=== PATIENT | male | born 1970 | race Hispanic/Latino ===

== ENCOUNTER 2016-12-10 06:15 | Emergency (ER) | payer OTHER ==
[~2016-12-10 06:15] MED LIST: FLEXERIL 5MG TAB5 MG PO
--- NOTE | 2016-12-10 06:32 | ED SYNCOPE COMPLAINT ---
History of Present Illness General Chief Complaint: General Adult Stated Complaint: SYNCOPAL EPISODE?SOB Source: patient, family Exam Limitations: no limitations Vital Signs & Intake/Output Vital Signs & Intake/Output Vital Signs Date Time Temp Pulse Resp B/P Pulse O2 O2 Flow FiO2 Ox Delivery Rate 12/10 1142 97 18 126/76 96 Room Air 12/10 0805 98.6 96 16 114/79 96 Room Air 12/10 0617 96.4 96 20 118/67 97 Room Air Allergies Coded Allergies: NO KNOWN ALLERGIES (03/17/15) Triage Note: PER PT NOT EATING WELL LAST COUPLE OF DAYS, LAST NIGHT COUGHING ALL NIGHT, THIS AM DEVELOPED L BACK PAIN, BEGAN TO VOMIT AND THEN WOKE UP ON FLOOR, WITH DAUGHTER OVER HIM, ALSO HAD WITNESSED SYNCOPAL EVENT IN EMS PRESENT, PT REPORTS GOING THROUGH A LOT RIGHT NOW. LEFT. Triage Nurses Notes Reviewed? yes Timing: recent history Precipitating Factors: none Context: became dizzy/fainted Episode Description: see below Loss of Consciousness: brief (seconds) Associated Symptoms: coughing HPI: 46 yo gentleman presents with syncope. He notes that he awoke this AM, was coughing, then felt dizzy, vomited and passed out briefly (few seconds). He then came back to consciousness and has otherwise felt well. He notes that he recently from his , has been under increased stress recently. He denies alcohol or other drugs. Upon arrival, he was tearful. He is otherwise well. (JACK GREGORY,KAY Banuelos) Reconcile Medications Clonazepam (Klonopin) 0.5 MG TABLET 1 TAB PO Q12 PRN ANXIETY (ISIDRO WALLACE DO) Past History Travel History Traveled to [place] past 21 day No Medical History Any Pertinent Medical History? see below for history Neurological: NONE EENT: NONE Cardiovascular: NONE Respiratory: NONE Gastrointestinal: NONE Hepatic: NONE Renal: NONE Musculoskeletal: NONE Psychiatric: NONE Endocrine: NONE Blood Disorders: NONE Cancer(s): NONE [employer]/Reproductive: NONE Surgical History Surgical History: none Psychosocial History What is your primary language Puerto Rican Tobacco Use: Current Daily Use Family History Family History, If Any: MOTHER FH: HTN (hypertension) FH: hyperlipidemia Hx Contributory? No (JACK GREGORY,KAY Banuelos) Review of Systems Review of Systems Constitutional: Reports: no symptoms. EENTM: Reports: no symptoms. Respiratory: Reports: no symptoms. Cardiovascular: Reports: no symptoms. GI: Reports: no symptoms. Genitourinary: Reports: no symptoms. Musculoskeletal: Reports: no symptoms. Skin: Reports: no symptoms. Neurological/Psychological: Reports: no symptoms. All Other Systems: Reviewed and Negative (JACK GREGORY,KAY Banuelos) Physical Exam Physical Exam General Appearance: well developed/nourished, alert, awake, anxious, mild distress Head: atraumatic, normal appearance Eyes: Bilateral: normal appearance, PERRL, EOMI. Ears, Nose, Throat: normal pharynx, normal ENT inspection Neck: normal inspection, supple, full range of motion Respiratory: normal breath sounds, no respiratory distress, left sided chest wall tenderness Cardiovascular: regular rate/rhythm Gastrointestinal: normal bowel sounds Back: normal inspection Extremities: normal inspection Psychiatric: awake, alert, oriented x 3 Cranial Nerves: normal hearing, normal speech, PERRL Motor/Sensory: no motor/sensory deficits Skin: intact, normal color, warm/dry Core Measures ACS in differential dx? No CVA/TIA Diagnosis: No Severe Sepsis Present: No Septic Shock Present: No (JACK GREGORY,KAY Banuelos) Progress Differential Diagnosis: orthostatic syncope, vasodepressor syncope, vs other Plan of Care: Orders Procedure Date/time Status BLOOD CULTURE 12/10 1202 Active TROPONIN LEVEL 12/10 1100 Complete CBC WITHOUT DIFFERENTIAL 12/10 1100 Complete EKG 12/10 1100 Active URINE DRUG SCREEN FOR ER ONLY 12/10 0715 Complete EKG 12/10 0637 Active URINALYSIS 12/10 0633 Complete TROPONIN LEVEL 12/10 0633 Complete PARTIAL THROMBOPLASTIN TIME 12/10 0633 Complete PROTHROMBIN TIME 12/10 0633 Complete ETHANOL 12/10 0633 Complete D-DIMER 12/10 0633 Complete COMPREHENSIVE METABOLIC PANEL 12/10 0633 Complete CBC WITHOUT DIFFERENTIAL 12/10 0633 Complete Laboratory Tests 12/10/16 1118: Troponin I < 0.01, CBC w Diff MAN DIFF ORDERED, RBC 4.91, MCV 91.4, MCH 31.5 H, RDW 12.3, MPV 8.2, Gran % 87.6 H, Lymphocytes % 10.4 L, Monocytes % 1.9, Eosinophils % 0, Basophils % 0.1, Absolute Granulocytes 18.6 H, Segmented Neutrophils 84 H, Absolute Lymphocytes 2.2, Lymphocytes 13 L, Monocytes 1 L, Absolute Monocytes 0.4, Eosinophils 1, Absolute Eosinophils 0, Basophils 1, Absolute Basophils 0, Platelet Estimate ADEQUATE, Normocytic RBCs VERIFIED, Normochromic RBCs VERIFIED, PUBS MCHC 34.4 12/10/16 0933: Urine Opiates Screen < 100.00, Methadone Screen < 40, Barbiturate Screen < 60, Ur Phencyclidine Scrn < 6.00, Amphetamines Screen < 100, U Benzodiazepines Scrn < 85, Urine Cocaine Screen < 50, Urine Cannabis Screen < 5.00, Urine Color YEL, Urine Clarity CLEAR, Urine pH 7.5, Ur Specific [place] <= 1.005, Urine Protein NEG, Urine Ketones NEG, Urine Nitrite NEG, Urine Bilirubin NEG, Urine Urobilinogen 0.2, Ur Leukocyte Esterase NEG, Ur Microscopic SEDIMENT EXAMINED, Urine RBC 1-3, Urine WBC RARE, Ur Epithelial Cells FEW, Urine Mucus FEW, Urine Hemoglobin TRACE-INTACT H, Urine Glucose NEG 12/10/16 0639: Anion Gap 13, Estimated GFR > 60, BUN/Creatinine Ratio 16.3, Glucose 161 H, Calcium 9.8, Total Bilirubin 0.9, AST 20, ALT 42, Alkaline Phosphatase 87, Troponin I < 0.01, Total Protein 7.2, Albumin 4.1, Globulin 3.1, Albumin/ Globulin Ratio 1.3, PT 11.8, INR 1.13, APTT 27, D-Dimer 282 H, CBC w Diff MAN DIFF ORDERED, RBC 4.88, MCV 91.7, MCH 31.4 H, RDW 12.7, MPV 8.7, Gran % 88.1 H , Lymphocytes % 7.7 L, Monocytes % 3.8, Eosinophils % 0.3, Basophils % 0.1, Absolute Granulocytes 21.9 H, Absolute Lymphocytes 1.9, Absolute Monocytes 0.9 H, Absolute Eosinophils 0.1, Absolute Basophils 0, Platelet Estimate ADEQUATE, Normocytic RBCs VERIFIED, Normochromic RBCs VERIFIED, PUBS MCHC 34.3, Serum Alcohol < 10.0 Microbiology 12/10 1215 BLOOD: Blood Culture - RECD 12/10 1209 BLOOD: Blood Culture - RECD Diagnostic Imaging: Viewed by Me: Radiology Read, CT Scan. Discussed w/RAD: Radiology Read, CT Scan. Initial ED EKG: normal axis, normal intervals, normal p-waves, normal QRS complex, normal sinus rhythm Hand-Off Endorsed To: ISIDRO WALLACE DO Endorsed Time: 0700 Pending: CT, labs, Xray (JACK GREGORY,KAY Banuelos) Departure Departure Disposition: STILL A PATIENT Condition: Stable Clinical Impression Primary Impression: Syncope Referrals: LUCIANO GREGORY,LOVELY Yuan (PCP/Family) Departure Forms: Customer Survey General Discharge Information (KAY SANTIAGO MD) Departure Prescriptions: Current Visit Scripts Clonazepam (Klonopin) 1 TAB PO Q12 PRN ANXIETY #15 TAB Comments 12/10/16 9 am 38-year-old male presents to the emergency department for syncope. According to the patient and he is getting from his . He's been under tremendous stress. Over the past 24 hours only been smoking cigarettes and drinking coffee. This morning he had 2 episodes of syncope, lasted seconds, he has been having some dizziness, no chest pain or shortness of breath. No headache now but he did have a headache. I was contacted by the radiologist resulting the CT scan of his head possible normal anatomic variation vs underlying parenchymal lesion. The patient had negative serial troponins and EKGs. He did have an elevated d-dimer. CTA was negative. No shortness of breath. He also has significant leukocytosis. He denies fever. No murmur. This was repeated and the white blood cell count came down somewhat. Blood cultures were sent. Upon reevaluation in the ED he has no symptoms. The results of the CT the head were reviewed as well as his lab results. He will follow-up with his primary care doctor this week and review the results of the CAT scans and lab work. He will return to the emergency department if worse. IMPRESSION: 1. No evidence of acute territorial cerebral or cerebellar infarction. 2. No intracranial hemorrhage. 3. There is asymmetry of the temporal horns of the lateral ventricles, the right being larger than the left. It is unclear whether the right temporal horn is slightly enlarged, or the left temporal horn is diminutive in size. Further evaluation with MRI with special attention to the temporal lobes is recommended to exclude an underlying parenchymal lesion. The above information was discussed with Dr. Wallace from the emergency room at 8:00 AM on 12/10/2016. DICTATED BY: KASHIF DUVALL MD DATE/TIME DICTATED:12/10/16743 BUS STARTER:STORMY DATE/TIME TRANSCRIBED:12/10/16743 CONFIDENTIAL, DO NOT COPY WITHOUT APPROPRIATE AUTHORIZATION. <Electronically signed in Other Vendor System> SIGNED BY: KASHIF DUVALL MD 12/10/16807 PATIENT: NICOLAS GAVIRIA PRESENT AGE: 46 PATIENT ACCOUNT NO: [id number] : 68 LOCATION: [facility] ORDERING PHYSICIAN: ISIDRO WALLACE DO SERVICE DATE: 12/10/16 EXAM TYPE: CAT - CTA CHEST-PULMONARY EMBOLISM EXAMINATION: CT ANGIOGRAM OF THE CHEST WITH AND WITHOUT CONTRAST (CT PULMONARY ANGIOGRAM FOR PE) CLINICAL INFORMATION: Chest pain, syncope. COMPARISON: Chest CTA 03/22/2015 TECHNIQUE: Prior to contrast administration, noncontrast localization images were obtained. Subsequently, multidetector volumetric imaging was performed from the thoracic inlet to below the diaphragms following the administration of 95 mL Optiray 320 intravenous contrast. No contrast reaction reported Sagittal, coronal, and MIP oblique sagittal reformatted images were obtained on the CT workstation, uploaded to PACS, and reviewed. DLP: 511 mGy-cm FINDINGS: QUALITY OF STUDY/CONTRAST BOLUS: Satisfactory. PULMONARY ARTERIES: No central or segmental pulmonary emboli. THORACIC AORTA: No aneurysm or dissection. LUNG: Moderate upper lobe predominant centrilobular emphysema. There is an 8 mm nodule at the left costophrenic sulcus. This is stable since 2014 although slightly increased in size when compared with 01/07/2009. There is a 4 mm nodule in the right upper lobe on image 120/461. This is stable since March 2015 and not imaged previously. Calcified granuloma in the lingula peripherally. PLEURA: No pleural effusion or pneumothorax. MEDIASTINUM: No pericardial effusion. There are enlarged subcarinal, precarinal, AP window, and hilar lymph nodes. CHEST WALL/AXILLA: No axillary or internal mammary lymphadenopathy. OSSEOUS STRUCTURES: No acute or suspicious osseous abnormality. UPPER ABDOMEN: Unremarkable. No reflux of contrast into the hepatic veins to suggest elevated right heart pressures. IMPRESSION: No evidence of pulmonary embolism. Mild mediastinal and hilar adenopathy. This has slightly increased since 03/22/2015. Moderate centrilobular emphysema. There is an 8 mm nodule at the left costophrenic sulcus and a 4 mm nodule in the right upper lobe. These are stable since 03/22/2015. Recommend follow-up chest CT in 6-12 months for this high-risk patient. Various management parameters for solitary pulmonary nodules are in the literature. According to the Fleischner Society, recommendations for pulmonary nodules are as follows: Nodule size < or = to 4 mm in LOW RISK PATIENTS: No follow up needed. Nodule size < or = to 4 mm in HIGH RISK PATIENTS: Follow up CT at 12 months; if unchanged, no further follow up. Nodule size > 4-6 mm in LOW RISK PATIENTS: Follow up CT at 12 months; if unchanged, no further follow up. Nodule size > 4-6 mm in HIGH RISK PATIENTS: Initial follow up CT at 6-12 months, then at 18-24 months if no change. Nodule size > 6-8 mm in LOW RISK PATIENTS: Initial follow up CT at 6-12 months, then at 18-24 months if no change. Nodule size > 6-8 mm in HIGH RISK PATIENTS: Initial follow up CT at 3-6 months, then 9-12 months and 24 months if no change. Nodule size > 8 mm in LOW RISK PATIENTS: Follow up CT at around 3, 9, and 24 months, dynamic contrast-enhanced CT, PET, and/or biopsy. Nodule size > 8 mm in HIGH RISK PATIENTS: Same as for low-risk patients. VTE: Negative. DICTATED BY: EDWARD CRISOSTOMO MD DATE/TIME DICTATED:12/10/16946 BUS STARTER:STORMY DATE/TIME TRANSCRIBED:12/10/16946 CONFIDENTIAL, DO NOT COPY WITHOUT APPROPRIATE AUTHORIZATION. <Electronically signed in Other Vendor System> SIGNED BY: EDWARD CRISOSTOMO MD [id number] (ISIDRO WALLACE DO) Critical Care Note Critical Care Note Comments: 12/10/16 The patient remains asymptomatic in the emergency Department is under severe stress. 2 sets of troponins are negative. He did have significant leukocytosis. Blood was have been ordered. He is afebrile CAT scan of the chest shows stable pulmonary nodules. He did have some abnormality on his CT scan of the head. He will follow-up with her doctor for outpatient MRI testing. Low dose of Klonopin his skin given to help him deal with the stress to follow- up with her doctor on Saturday. Return to the emergency department if worse (ISIDRO WALLACE DO)
[2016-12-10 06:52] LABS: ABSOLUTE BASOPHIL COUNT 0 /CUMM (0.0-0.2); ABSOLUTE EOSINOPHIL COUNT 0.1 /CUMM (0.0-0.7); ABSOLUTE GRANULOCYTE CT 21.9 /CUMM (1.4-6.5); ABSOLUTE LYMPH COUNT 1.9 /CUMM (1.2-3.4); ABSOLUTE MONOCYTE COUNT 0.9 /CUMM (0.10-0.60); BASOPHIL % 0.1 % (0.0-2.0); EOSINOPHIL % 0.3 % (0-5); GRANULOCYTE % 88.1 % (42.2-75.2); HEMATOCRIT 44.7 % (42-52); MEAN CORPUSCULAR HGB 31.4 PG (27.0-31.0); MEAN CORPUSCULAR HGB CONC 34.3 G/DL (33.0-37.0); MEAN CORPUSCULAR VOLUME 91.7 FL (80.0-94.0); MEAN PLATELET VOLUME 8.7 FL (7.4-10.4); PLATELET COUNT 300 /CUMM (130-400); RBC DISTRIBUTION WIDTH 12.7 % (11.5-14.5); RED BLOOD CELL CT 4.88 /CUMM (4.70-6.10); WHITE BLOOD CELL COUNT 24.8 /CUMM (4.8-10.8)
[2016-12-10 07:04] LABS: PT 11.8 SEC (9.4-12.5); PTT 27 SEC (25-37)
--- NOTE | 2016-12-10 07:45 | RADIOLOGY REPORT ---
EXAMINATION: XR PORTABLE CHEST CLINICAL INFORMATION: Syncope. Change in mental status. COMPARISON: Chest radiograph dated 03/15/2015. TECHNIQUE: Portable AP view of the chest was obtained. FINDINGS: The trachea is in normal anatomic position. The cardiac silhouette is normal in size and configuration. There is minimal bibasilar linear atelectasis, greater on the right. No consolidation. No pneumothorax. No pleural effusion. IMPRESSION: No pneumonia, pneumothorax or pleural effusion.
--- NOTE | 2016-12-10 08:08 | CT SCAN REPORT ---
EXAMINATION: CT HEAD WITHOUT CONTRAST CLINICAL INFORMATION: Syncope. Mental status change. COMPARISON: None. TECHNIQUE: Contiguous axial imaging was performed from the skull base to vertex without intravenous administration of contrast. DLP: 529.16 mGy-cm. FINDINGS: There is no evidence of acute intracranial hemorrhage or territorial infarction. No abnormal mass effect or midline shift is seen. Gipson to white matter differentiation is well preserved. No extra-axial fluid collections are identified. There is mild, asymmetry of the temporal horns, the right being larger than left. The ventricles are otherwise normal in size. The osseous structures and soft tissues are normal. The mastoid air cells and visualized portions of the paranasal sinuses are well aerated. IMPRESSION: 1. No evidence of acute territorial cerebral or cerebellar infarction. 2. No intracranial hemorrhage. 3. There is asymmetry of the temporal horns of the lateral ventricles, the right being larger than the left. It is unclear whether the right temporal horn is slightly enlarged, or the left temporal horn is diminutive in size. Further evaluation with MRI with special attention to the temporal lobes is recommended to exclude an underlying parenchymal lesion. The above information was discussed with Dr. Bacon from the emergency room at 8:00 AM on 12/10/2016.
--- NOTE | 2016-12-10 11:05 | CT SCAN REPORT ---
EXAMINATION: CT ANGIOGRAM OF THE CHEST WITH AND WITHOUT CONTRAST (CT PULMONARY ANGIOGRAM FOR PE) CLINICAL INFORMATION: Chest pain, syncope. COMPARISON: Chest CTA 03/22/2015 TECHNIQUE: Prior to contrast administration, noncontrast localization images were obtained. Subsequently, multidetector volumetric imaging was performed from the thoracic inlet to below the diaphragms following the administration of 95 mL Optiray 320 intravenous contrast. No contrast reaction reported Sagittal, coronal, and MIP oblique sagittal reformatted images were obtained on the CT workstation, uploaded to PACS, and reviewed. DLP: 511 mGy-cm FINDINGS: QUALITY OF STUDY/CONTRAST BOLUS: Satisfactory. PULMONARY ARTERIES: No central or segmental pulmonary emboli. THORACIC AORTA: No aneurysm or dissection. LUNG: Moderate upper lobe predominant centrilobular emphysema. There is an 8 mm nodule at the left costophrenic sulcus. This is stable since 2014 although slightly increased in size when compared with 01/07/2009. There is a 4 mm nodule in the right upper lobe on image 120/461. This is stable since March 2015 and not imaged previously. Calcified granuloma in the lingula peripherally. PLEURA: No pleural effusion or pneumothorax. MEDIASTINUM: No pericardial effusion. There are enlarged subcarinal, precarinal, AP window, and hilar lymph nodes. CHEST WALL/AXILLA: No axillary or internal mammary lymphadenopathy. OSSEOUS STRUCTURES: No acute or suspicious osseous abnormality. UPPER ABDOMEN: Unremarkable. No reflux of contrast into the hepatic veins to suggest elevated right heart pressures. IMPRESSION: No evidence of pulmonary embolism. Mild mediastinal and hilar adenopathy. This has slightly increased since 03/22/2015. Moderate centrilobular emphysema. There is an 8 mm nodule at the left costophrenic sulcus and a 4 mm nodule in the right upper lobe. These are stable since 03/22/2015. Recommend follow-up chest CT in 6-12 months for this high-risk patient. Various management parameters for solitary pulmonary nodules are in the literature. According to the Fleischner Society, recommendations for pulmonary nodules are as follows: Nodule size < or = to 4 mm in LOW RISK PATIENTS: No follow up needed. Nodule size < or = to 4 mm in HIGH RISK PATIENTS: Follow up CT at 12 months; if unchanged, no further follow up. Nodule size > 4-6 mm in LOW RISK PATIENTS: Follow up CT at 12 months; if unchanged, no further follow up. Nodule size > 4-6 mm in HIGH RISK PATIENTS: Initial follow up CT at 6-12 months, then at 18-24 months if no change. Nodule size > 6-8 mm in LOW RISK PATIENTS: Initial follow up CT at 6-12 months, then at 18-24 months if no change. Nodule size > 6-8 mm in HIGH RISK PATIENTS: Initial follow up CT at 3-6 months, then 9-12 months and 24 months if no change. Nodule size > 8 mm in LOW RISK PATIENTS: Follow up CT at around 3, 9, and 24 months, dynamic contrast-enhanced CT, PET, and/or biopsy. Nodule size > 8 mm in HIGH RISK PATIENTS: Same as for low-risk patients. VTE: Negative.
[2016-12-10 11:26] LABS: ABSOLUTE BASOPHIL COUNT 0 /CUMM (0.0-0.2); ABSOLUTE EOSINOPHIL COUNT 0 /CUMM (0.0-0.7); ABSOLUTE GRANULOCYTE CT 18.6 /CUMM (1.4-6.5); ABSOLUTE LYMPH COUNT 2.2 /CUMM (1.2-3.4); ABSOLUTE MONOCYTE COUNT 0.4 /CUMM (0.10-0.60); BASOPHIL % 0.1 % (0.0-2.0); EOSINOPHIL % 0 % (0-5); GRANULOCYTE % 87.6 % (42.2-75.2); HEMATOCRIT 44.8 % (42-52); MEAN CORPUSCULAR HGB 31.5 PG (27.0-31.0); MEAN CORPUSCULAR HGB CONC 34.4 G/DL (33.0-37.0); MEAN CORPUSCULAR VOLUME 91.4 FL (80.0-94.0); MEAN PLATELET VOLUME 8.2 FL (7.4-10.4); PLATELET COUNT 314 /CUMM (130-400); RBC DISTRIBUTION WIDTH 12.3 % (11.5-14.5); RED BLOOD CELL CT 4.91 /CUMM (4.70-6.10); WHITE BLOOD CELL COUNT 21.2 /CUMM (4.8-10.8)
[2016-12-10 11:42] VITALS: BP 126/76
[2016-12-10] MEDS ORDERED: KLONOPIN0.5 M1 PO (12:06)
== END 2016-12-10 12:10 ==
LOC: ERH 06:15
PROVIDERS: Emergency Medicine; Pediatrics
DX: R55 Syncope and collapse (principal)
CPT/HCPCS: 80307; 81001; 87040; 93005; 93010; 96360; G0480